=== PATIENT | female | born 2000 | race Caucasian/White ===

== ENCOUNTER 2023-10-03 08:31 | Inpatient (IN) | payer OTHER ==
[~2023-10-03] VITALS: Ht 160 cm; Wt 99.1 kg
[2023-10-03] VITALS (72 sets, daily range): BP systolic 93–136; BP diastolic 47–80; PULSE 75–104; TEMP 97.6–98.8
[2023-10-03] MEDS ORDERED: LR 1,000 ML IV SCH (08:45)
[2023-10-03] MEDS ORDERED: Penicillin G Potassium 5,000,000 UNITS in NS 100 ML IV ONE (08:45)
[2023-10-03 09:09] LABS: HEMOGLOBIN 11.9 g/dl (12.5-16.0); MEAN CELL VOLUME 82 fl (80.0-100.0); MEAN CORPUSCULAR HEMOGLOBIN 27 pg (27-31); MEAN CORPUSCULAR HGB CONC 33 g/dl (33.0-37.0); MEAN PLATELET VOLUME 10.6 fl (7.4-10.4); PLATELET COUNT 233 K/mm3 (130-400); RED BLOOD COUNT 4.44 M/mm3 (4.10-5.30); REDCELL DISTRIBUTION WIDTH-CV 13.5 % (11.5-14.5)
[2023-10-03 09:11] LABS: HEMATOCRIT 36.2 % (37.0-47.0)
--- NOTE | 2023-10-03 09:15 | NUR ---
0810- Pt arrives on unit ambulatory with spouse, complaints of SROM at 0630 this morning, reports clear fluid. 0815- Pt into bed, EFM and TOCO on and tracing. O2 sat moitor on and tracing maternal HR. Pt denies complications with but GBS +. Pt denies VB. Reports contractions every 3-7 mins and +FM. 0823- Amniotrace positive, SVE 3/80/-2, Pt tolerated exam well. Discussed POC. Pt denies questions at this time but wants to ambulate and have intermittent monitoring if possible.
[2023-10-03] MEDS ORDERED: PRENATAL TABLET PO (09:33)
[2023-10-03] MEDS ORDERED: SYNTHROID0.1 MG/TAB PO (09:33)
[2023-10-03 09:56] LABS: BAND 1 % (0-10); EOSINOPHIL 1 % (0-4); LYMPHOCYTE 11 % (20.0-51.0); NEUTROPHILS 81 % (42.0-75.2)
[2023-10-03 09:57] LABS: PLATELET ESTIMATE NORMAL (NORMAL)
--- NOTE | 2023-10-03 10:08 | NUR ---
1008- Anitbiotic infusion complete. IV saline locked. Pt requests to use BB. Pt up to void first. Intermittent monitoring explained and understanding verbalized.
[2023-10-03] MEDS ORDERED: ROPivacaine PF 0.2% 200 ML IV ONE (10:56)
[2023-10-03] MEDS ORDERED: ePHEDrine 50 MG/10 ML VIAL IV PRN (11:00)
[2023-10-03] MEDS ORDERED: LR & Oxytocin 500 ML IV SCH (11:00)
[2023-10-03] MEDS ORDERED: diphenhydrAMINE 25 MG CAP PO PRN (11:00)
[2023-10-03] MEDS ORDERED: Ondansetron 4 MG/2 ML VIAL IV PRN (11:00)
[2023-10-03] MEDS ORDERED: Naloxone 0.4 MG/ML VIAL IV PRN (11:00)
[2023-10-03] MEDS ORDERED: diphenhydrAMINE 50 MG/ML 1 ML VIAL IV PRN (11:00)
--- NOTE | 2023-10-03 11:30 | NUR ---
1107- Pt repositioned to sitting on side of bed for epidural placement. Alize, EMPLOYEE RELATIONS ADMINISTRATOR at bedside. 1120- Test dose, see anesthesia record. 1126- Pt assisted to semi-fowlers with WL. EFM and TOCO adjusted. Dr Nugent at bedside, discusses progress and POC, questions answered. This RN remains at bedside watching VS and FHR tracing.
[2023-10-03] MEDS ORDERED: Penicillin G Potassium 2,500,000 UNITS in NS 100 ML IV SCH (12:36)
--- NOTE | 2023-10-03 13:00 | NUR ---
1245- Pt repositioned to RL, EFM and TOCO adjusted. After adjusted, UCs not tracing well, TOCO repositioned.
--- NOTE | 2023-10-03 14:30 | NUR ---
1416- Pt repositioned to RL, variable decels x2 with repositioning EFM and TOCO adjusted. With the following UCs, subtle late decels noted. 1436- Pt repositioned to LL.
--- NOTE | 2023-10-03 15:00 | NUR ---
1457- Pt assisted to knee-chest position. This RN remains at bedside with Pt, holding EFM.
--- NOTE | 2023-10-03 15:15 | NUR ---
1514- UCs not tracing well due to maternal position, adjusted multiple times while in knee-chest. Pt assisted out of YG and into LL.
--- NOTE | 2023-10-03 17:00 | NUR ---
1645- Dr Nugent at bedside, SVE /0. Pt repositioned to RL. MD remains at nurses station, reviewing strip. 4126- Pitocin decreased to 2mu per MD VORB.
[2023-10-03] MEDS ORDERED: Acetaminophen 500 MG TAB PO PRN (18:45)
[2023-10-04] VITALS (12 sets, daily range): BP systolic 109–123; BP diastolic 55–73; PULSE 68–85; TEMP 97.8–98
--- NOTE | 2023-10-04 00:25 | NUR ---
2240- SVE OF COMPLETE/+1. 2250- GUNTER DCd, 350ML URINE OUT. PT BEGINS PUSHING WITH THIS NURSE. [id number]: BROKEN STRIP NOTED WITH MATERNAL PUSHING EFFORTS. INTERMITTENT LATE DECELS AUDIBLE ON US. AT APPROXIMATELY 2305 FHT BASELINE OF 165-175 WITH PUSHING. 2321- DR. MARCUS NOTIFED OF SVE OF COMPLETE, PT HAS BEEN PUSHING FOR 30 MINUTES. TACHYCARDIA NOTED FOR APPROXIMATELY THE LAST 20 MINUTES, CURRENT BASELINE OF 175 WITH MODERATE VARIABILITY. GOOD MATERNAL EFFORT NOTED WITH PUSHING. DR. MARCUS TO COME TO HOSPITAL TO EVALUATE. 2335- DR. MARCUS IN ROOM TO EVALUATE PUSHING EFFORTS AND FHTs. TACHYCARDIA RESOLVED AT THIS TIME, BASELINE NOW 155. FOLLOWING EVALUATION, PT INSTRUCTED TO CONTINUE PUSHING WITH THIS NURSE. DR. MARCUS OUT OF ROOM BUT WILL REMAIN ON UNIT. 2345- PT STATES CONSTANT INTENSE RECTAL PRESSURE, ENCOURAGED TO PUSH EPIDURAL BUTTON. PT INITIALLY DECLINED NEED. PT BECOMING INCREASINGLY TENSE. EDUCATED THAT IF SHE USED HER EPIDURAL BUTTON SHE BE ABLE TO RELAX AND PROVIDE BETTER PUSHING EFFORTS WITH CONTRACTIONS. PT VERBALIZES UNDERSTANDING AND PUSHES EPIDURAL BUTTON. 2350- PT STATES SHE IS GETTING TIRED, REQUESTS TO SPEAK WITH DR. MARCUS ABOUT A VACUUM ASSISTED DELIVERY. THIS NURSE OUT OF ROOM TO GET DR. MARCUS WHO HAS REMAINED ON THE UNIT. 2352- DR MARCUS IN ROOM TO EVALUATE AND DISCUSS VACUUM ASSISTED DELIVERY. PT EDUCATED ON VACUUM AND VERBALIZES UNDERSTANDING AND REQUESTS VACUUM ASSIST. 2357- ROOM PREPARED FOR DELIVERY. DR. MARCUS REQUESTS FOR ANESTHESIA TO BE NOTIFIED OF VACUUM ASSIST AND TO COME TO THE HOSPITAL. Nura MONTIEL CRNA NOTIFIED AND COMING TO THE HOSPITAL NOW. 0000- VACUUM PLACED BY DR. MARCUS, NO PRESSURE APPLIED. 0002- PRESSURE APPLIED TO THE GREEN, TRACTION APPLIED WITH MATERNAL PUSHING EFFORTS BY DR. MARCUS FOR APPOXIMATELY 50 SECONDS. GOOD MATERNAL PUSHING EFFORTS AND BABY MOVING WELL WITH VACUUM ASSIST. PRESSURE RELEASED AT COMPLETION OF THE CTX. 0006- PRESSURE APPLIED TO THE GREEN, TRACTION APPLIED WITH MATERNAL PUSHING EFFORTS BY DR. MARCUS FOR APPROXIMATELY 70 SEONDS, GOOD MATERNAL PUSHING EFFORTS AND BABY MOVING WELL WITH VACUUM ASSIST. PRESSURE RELEASED AT COMPLETEION OF CTX. 0008- PRESSURE APPLIED TO THE GREEN, TRACTION APPLIED WITH MATERNAL PUSHINNG EFFORTS BY DR. MARCUS FOR APPROXIMATELY 30 SECONDS. GOOD MATERNAL PUSHING EFFORTS AND BABY MOVING WELL WITH VACUUM ASSIST. 0009- VACUUM REMOVED WITH DELIVERY OF HEAD. VAGINAL DELIVERY OF VIABLE BABY GIRL NOTED. BABY PLACED ON PT ABDOMEN. BABY DRIED AND STIMULATED, SPONTANEOUS CRY NOTED. BABY CARES ASSUMED BY Rosario KOLB RN. 0013- SPONTANEOUS DELIVERY OF INTACT PLACENTA. PITOCIN STARTED AT 333ML/HR PER PROTOCOL. 0015- DR. MARCUS ADMINISTERS LIDOCAINE PRIOR TO REPAIR OF 2ND DEGREE PERINEUM LACERATION. SEE EMAR. 0025- RECOVERY STARTED.
[2023-10-04] MEDS ORDERED: Loratadine 10 MG TAB PO PRN (00:30)
[2023-10-04] MEDS ORDERED: Magnes Hydrox (MOM) 80 MG/ML 30 ML CUP PO PRN (00:30)
[2023-10-04] MEDS ORDERED: Witch Hazel 50% Pads Bulk TUB TP PRN (01:45)
[2023-10-04] MEDS ORDERED: Phenylephrine/Mineral Oil/Petrolatum 57 GM TUBE RC PRN (01:45)
[2023-10-04] MEDS ORDERED: Acetaminophen 500 MG TAB PO SCH (01:45)
[2023-10-04] MEDS ORDERED: Naloxone 0.4 MG/ML VIAL IV PRN (01:45)
[2023-10-04] MEDS ORDERED: Measles/Mumps/Rubella Virus Vaccine Live w Diluent 0.5 ML VIAL SQ SCH (01:45)
[2023-10-04] MEDS ORDERED: Ibuprofen 600 MG TAB PO SCH (01:45)
[2023-10-04] MEDS ORDERED: Mag/Al Hydrox/Simeth Susp 30 ML CUP PO PRN (01:45)
[2023-10-04] MEDS ORDERED: oxyCODONE 5 MG TAB PO PRN (01:45)
[2023-10-04 06:10] LABS: HEMOGLOBIN 10.2 g/dl (12.5-16.0)
[2023-10-04 06:11] LABS: HEMATOCRIT 30.6 % (37.0-47.0)
[2023-10-04] MEDS ORDERED: Sennosides/Docusate 8.6-50 MG TAB PO SCH (08:00)
[2023-10-04] MEDS ORDERED: Prenatal Vitamins/Iron/FA TAB PO SCH (09:00)
[2023-10-04] MEDS ORDERED: traZODone 50 MG TAB PO PRN (21:00)
[2023-10-05] VITALS: BP 118/6; PULSE 70; TEMP 98.3
[2023-10-05 08:44] VITALS: BP 104/65; PULSE 67; TEMP 97.8
[2023-10-05] MEDS ORDERED: IBU600 MG PO (10:36)
== END 2023-10-05 11:30 | disposition home or self-care (01) | DRG 807 ==
LOC: LDRO 08:31 → LDR 09:00 → OB 10-04 03:00
PROVIDERS: ADMIT Obstetrics & Gynecology
PROC: 10D07Z6 Extraction of Products of Conception, Vacuum, Via Natural or Artificial Opening (ICD-10-PCS; principal; 2023-10-03)
PROC: 0KQM0ZZ Repair Perineum Muscle, Open Approach (ICD-10-PCS; 2023-10-03)
DX: O99.824 Streptococcus B carrier state complicating childbirth (principal); Z37.0 Single live birth; Z3A.38 38 weeks gestation of pregnancy; O70.1 Second degree perineal laceration during delivery; O99.284 Endocrine, nutritional and metabolic diseases complicating childbirth; E03.9 Hypothyroidism, unspecified
CPT/HCPCS: J2405; J2540; J2590; J2795; J7120